=== PATIENT | male | born 1945 | race Caucasian/White ===

== ENCOUNTER 2017-11-08 09:46 | Outpatient (RCR) | payer MEDICARE, OTHER ==
[~2017-11-08 09:46] MED LIST: ASPI325T32 PO; ATEN100T88 PO; ATEN25TA PO; ATOR80TA76 PO; LOVA10TA PO; LOVA20TA2 PO; ONDA4TAB11 PO
[2017-11-09] MEDS ORDERED: METO-333 PO (08:26)
[2017-11-09] MEDS ORDERED: amiodarone PO (08:26)
[2017-11-09] MEDS ORDERED: AMLO5TAB2 PO (08:27)
== END 2018-02-06 | disposition home or self-care (01) ==
LOC: CARD 09:46
PROVIDERS: ATTEND Internal Medicine
DX: R55 Syncope and collapse (principal)
CPT/HCPCS: 93225; 93226

== ENCOUNTER 2017-11-09 07:43 | Emergency (ER) | payer MEDICARE, OTHER ==
[~2017-11-09] VITALS: Ht 166.4 cm; Wt 82.1 kg
--- OUTSIDE RECORDS SUMMARY | 2017-11-09 07:49 | XMS REPORT | Continuity of Care Document ---
Author Author [facility] Organization [facility] Address Unknown Phone Unavailable Allergies Active Description Code Type Severity Reaction Onset Reported/Identified Relationship to Patient Clinical Status Yes No Known Drug Allergies [id number] Drug Allergy Unknown N/A 04/11/2013 Medications There is no data. Problems Date Dx Coded Attending Type Code Diagnosis Diagnosed By 04/11/2013 SUMIT GIBSON DO Ot 562.10 DIVERTICULOSIS COLON (W/O MENT OF HEMORR 04/11/2013 SUMIT GIBSON DO Ot V76.51 SCREEN MAL NEOP-COLON 10/29/2013 TIGRE GEORGE MD Ot 787.01 NAUSEA WITH VOMITING 10/29/2013 TIGRE GEORGE MD Ot 787.91 DIARRHEA 11/30/2014 WALKER KEANE MD Ot 780.2 SYNCOPE AND COLLAPSE 11/30/2014 WALKER KEANE MD Ot 780.4 DIZZINESS AND GIDDINESS 11/30/2014 Ot 433.10 11/30/2014 Ot 433.30 11/30/2014 Ot 785.2 11/30/2014 SUMIT GIBSON DO Ot V72.84 04/09/2015 GRACE LANGE DO Ot 424.1 04/29/2015 GRACE LANGE DO Ot 424.1 05/31/2015 Ot 433.10 05/31/2015 Ot 433.30 05/31/2015 Ot 785.2 05/31/2015 SUMIT GIBSON DO Ot V72.84 05/31/2015 GRACE LANGE DO Ot 424.1 06/03/2015 SAVANNAH ADEN MD Ot Z95.1 06/03/2015 SAVANNAH ADEN MD Ot Z95.1 06/05/2015 SAVANNAH ADEN MD Ot Z95.1 07/08/2015 SAVANNAH ADEN MD Ot Z95.1 07/17/2015 SAVANNAH ADEN MD Ot Z95.1 08/29/2015 SAVANNAH ADEN MD Ot Z95.1 PRESENCE OF AORTOCORONARY BYPASS GRAFT 08/30/2015 MARKIE SORIANO, SAVANNAH Ray Ot Z95.1 08/30/2015 MARKIE SORIANO, SAVANNAH Ray Ot Z95.1 08/30/2015 MARKIE SORIANO, SAVANNAH Ray Ot Z95.1 09/02/2015 MARKIE SORIANO, SAVANNAH Ray Ot Z48.812 ENCNTR FOR SURGICAL AFTCR FOLLOWING SURG 09/02/2015 MARKIE SORIANO, SAVANNAH Ray Ot Z95.1 PRESENCE OF AORTOCORONARY BYPASS GRAFT 01/29/2016 DEMETRA SORIANO, JOSE J Singh Ot I51.7 CARDIOMEGALY 01/29/2016 DEMETRA SORIANO, JOSE J Singh Ot R00.2 PALPITATIONS 01/29/2016 DEMETRA SORIANO, JOSE J T Ot R42 DIZZINESS AND GIDDINESS 01/30/2016 DEMETRA SORIANO, JOSE J T Ot I51.7 CARDIOMEGALY 01/30/2016 DEMETRA SORIANO, JOSE J T Ot R00.2 PALPITATIONS 01/30/2016 DEMETRA SORIANO, JOSE J T Ot R42 DIZZINESS AND GIDDINESS 02/11/2016 Ot 433.10 CAROTID ARTERY OCCLUSION W O CEREBRAL IN 02/11/2016 Ot 433.30 MULT BILTRAL ARTERY OCCLUSION WO CEREBRA 02/11/2016 Ot 785.2 CARDIAC MURMURS NEC 02/11/2016 SUMIT GIBSON DO Ot V72.84 EXAM PRE-OPERATIVE NOS 02/11/2016 GRACE LANGE DO Ot 424.1 AORTIC VALVE DISORDER 02/13/2016 GRACE LANGE DO Ot R00.2 PALPITATIONS 03/31/2016 GRACE LANGE DO Ot R00.2 PALPITATIONS 04/03/2016 GRACE LANGE DO Ot R00.2 PALPITATIONS 05/11/2016 GRACE LANGE DO Ot R00.2 PALPITATIONS 05/12/2016 GRACE LANGE DO Ot R00.2 PALPITATIONS Procedures There is no data. Results There is no data. Encounters ACCT No. Visit Date/Time Discharge Status Pt. Type Provider Facility Loc./Unit Complaint [id number] 05/12/2016 09:30:00 05/12/2016 23:59:59 CLS Preadmit GRACE LANGE DO [facility] HEART PALPITATIONS [id number] 03/06/2016 10:00:00 05/11/2016 00:01:00 DIS Outpatient GRACE LANGE DO [facility] CARD HEART PALPITATIONS [id number] 01/29/2016 21:04:00 01/29/2016 23:09:00 DIS Emergency DEMETRA SORIANO, JOSE J Singh [facility] ER [id number] 09/02/2015 11:52:00 09/02/2015 12:47:00 DIS Outpatient SAVANNAH ADEN MD [facility] CR [id number] 08/26/2015 09:30:00 08/26/2015 23:59:59 CLS Outpatient SAVANNAH ADEN MD [facility] CR [id number] 03/20/2015 11:10:00 03/20/2015 23:59:59 CLS Outpatient GRACE LANGE DO [facility] CARD [id number] 11/30/2014 14:14:00 11/30/2014 15:46:00 DIS Emergency LAKHWINDER SORIANO, WALKER San [facility] ER [id number] 10/29/2013 07:38:00 10/29/2013 10:47:00 DIS Emergency TIGRE GEORGE MD [facility] ER [id number] 04/11/2013 12:33:00 04/11/2013 15:05:00 DIS Outpatient SUMIT GIBSON DO [facility] [id number] 04/05/2013 07:17:00 04/05/2013 23:59:59 CLS Outpatient SUMIT GIBSON DO [facility] PREOP [id number] 11/30/2014 15:50:00 Document Registration [email or web address] 03/20/2015 11:10:20 ACT Document Registration
[2017-11-09 08:00] VITALS: BP 164/99
[2017-11-09] MEDS ORDERED: amiodarone PO (08:26)
[2017-11-09] MEDS ORDERED: METO-333 PO (08:26)
[2017-11-09] MEDS ORDERED: AMLO5TAB2 PO (08:27)
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
[2017-11-09 08:37] LABS: BASOPHILS # (AUTO) 0.1 10^3/uL (0.0-0.1); BASOPHILS % (AUTO) 1 % (0-10); EOSINOPHILS # (AUTO) 0.2 10^3/uL (0.0-0.3); EOSINOPHILS % (AUTO) 3 % (0-10); HEMATOCRIT 39 % (40-54); LYMPHOCYTES # (AUTO) 1.4 X 10^3 (1.0-4.0); LYMPHOCYTES % (AUTO) 20 % (12-44); MEAN CORPUSCULAR HEMOGLOBIN 29 PG (25-34); MEAN CORPUSCULAR HGB CONC 33 G/DL (32-36); MEAN CORPUSCULAR VOLUME 88 FL (80-99); MEAN PLATELET VOLUME 12.1 FL (7.4-10.4); MONOCYTES # (AUTO) 0.5 X 10^3 (0.0-1.0); MONOCYTES % (AUTO) 8 % (0-12); NEUTROPHILS # (AUTO) 4.7 X 10^3 (1.8-7.8); NEUTROPHILS % (AUTO) 68 % (42-75); PLATELET COUNT 224 10^3/uL (130-400); RED CELL DISTRIBUTION WIDTH 14.9 % (10.0-14.5)
[2017-11-09 08:51] LABS: PROTHROMBIN TIME PATIENT 13.4 SEC (12.2-14.7)
[2017-11-09 08:54] LABS: FIBRIN DEGRADATION PRODUCTS 0.65 UG/ML (0.00-0.49)
[2017-11-09 09:01] LABS: ALANINE AMINOTRANSFERASE 28 U/L (0-55); ALBUMIN 4.3 GM/DL (3.2-4.5); ALKALINE PHOSPHATASE 91 U/L (40-136); BILIRUBIN,TOTAL 0.6 MG/DL (0.1-1.0); BUN/CREATININE RATIO 19; CALCIUM 9.6 MG/DL (8.5-10.1); CARBON DIOXIDE 22 MMOL/L (21-32); CHLORIDE 107 MMOL/L (98-107); CREATININE SERUM 1.35 MG/DL (0.60-1.30); GFR ESTIMATED 52; GLUCOSE 99 MG/DL (70-105); POTASSIUM 4.2 MMOL/L (3.6-5.0); SODIUM 140 MMOL/L (135-145); TOTAL PROTEIN 7.4 GM/DL (6.4-8.2)
--- NOTE | 2017-11-09 09:17 | Diagnostic Imaging Report ---
INDICATION: Syncopal episodes Technique: Multiple contiguous axial images were obtained through the brain without the use of intravenous contrast. Comparison made with prior examination from 03/28/2007. FINDINGS: There is prominence of the ventricles and sulci. There is no hydrocephalus or cerebral edema. There is no midline shift or mass-effect. There is no intracranial mass, hemorrhage, or extra-axial fluid collection. There is some diffuse decreased attenuation of the periventricular white matter which is nonspecific. The visualized paranasal sinuses and mastoid air cells are clear. There are no regional areas of decreased attenuation appreciated to suggest an acute CVA. IMPRESSION: 1. No acute intracranial process. 2. Age-appropriate atrophy. 3. Decreased attenuation of the periventricular white matter which is nonspecific, however, likely reflects senescent change and/or chronic small vessel ischemic disease. If there is high clinical concern for an acute CVA further evaluation with MRI should be considered. Dictated by: Dictated on workstation # [id number]
--- NOTE | 2017-11-09 09:30 | Diagnostic Imaging Report ---
INDICATION: Low back pain with leg tingling and weakness. Comparison made with prior examination from 01/29/2016. FINDINGS: The heart size is normal. There has been previous median sternotomy and coronary bypass graft. There is no pleural effusion, pneumothorax or pneumonia. Mediastinum is unremarkable. IMPRESSION: No acute cardiopulmonary abnormality. Dictated by: Dictated on workstation # [id number]
[2017-11-09 09:31] LABS: BILIRUBIN,URINE NEGATIVE (NEGATIVE); CLARITY,URINE CLEAR; COLOR,URINE YELLOW; GLUCOSE, URINE (UA) NEGATIVE (NEGATIVE); KETONES,URINE NEGATIVE (NEGATIVE); LEUKOCYTE ESTERASE ,URINE 1+ (NEGATIVE); NITRITE,URINE NEGATIVE (NEGATIVE); PH,URINE 5 (5-9); PROTEIN,URINE NEGATIVE (NEGATIVE); UROBILINOGEN,URINE NORMAL (NORMAL)
[2017-11-09 09:40] LABS: BACTERIA,URINE NEGATIVE /HPF; SQUAMOUS EPITHELIAL CELL,UR RARE /HPF; WBC,URINE RARE /HPF
[2017-11-09 09:41] LABS: HYALINE CASTS, URINE RARE /LPF
--- NOTE | 2017-11-09 10:03 | Diagnostic Imaging Report ---
PROCEDURE: CT lumbar spine without contrast. TECHNIQUE: Multiple contiguous axial images were obtained through the lumbar spine without the use of intravenous contrast. Sagittal and coronal reformations were then performed. INDICATION: Chronic low back pain. This morning, he woke up and the left leg was tingling and weak. FINDINGS: There is some degenerative lumbar rotoscoliosis. The vertebral body heights are well-maintained. There is no spondylolysis or spondylolisthesis. No fractures are identified. T12-L1 is unremarkable. At L1-2, there is marked loss of disc height and signal intensity. There is broad-based annular bulging, facet disease, and thickening of the ligamentum flavum. There appears to be at least moderate central spinal stenosis with moderately severe bilateral neuroforaminal encroachment, left greater than right. There are degenerative changes in the endplates. There is also a vacuum disc. At L2-3, there is almost complete loss of disc height and signal intensity. There is broad-based annular bulging, facet disease, and thickening of the ligamentum flavum. There are degenerative changes in the endplates. There is moderately severe left neuroforaminal encroachment and mild right neuroforaminal encroachment. At L3-4, there is loss of disc height and signal intensity. There is a vacuum disc. There is broad-based annular bulging, facet disease, and thickening of the ligamentum flavum. There is moderate to severe central spinal stenosis with encroachment upon the lateral recess bilaterally. There is moderately severe right and moderate left neuroforaminal encroachment. At L4-5, there is loss of disc height. There is a vacuum disc. There are degenerative changes in the endplates. There is broad-based annular bulging, facet disease, and thickening of the ligamentum flavum. There is encroachment upon the lateral recess bilaterally. There is moderately severe central spinal stenosis. There is moderately severe right and mild left neuroforaminal encroachment. At L5-S1, there is loss of disc height. There is a vacuum disc. There are degenerative changes in the endplates. There is annular bulging and some facet disease. There is moderate spinal stenosis with encroachment upon the lateral recess bilaterally. There is at least moderate bilateral neuroforaminal encroachment. There is some atherosclerotic calcification of the aorta which is nonaneurysmal. There are no other focal soft tissue abnormalities. IMPRESSION: Severe diffuse lumbar spondylosis and multilevel degenerative disease as detailed above. Dictated by: Dictated on workstation # [id number]
[2017-11-09 11:52] VITALS: BP 150/92
== END 2017-11-09 11:52 | disposition home or self-care (01) ==
LOC: EDUNIT# 07:43 → ER 07:44
DX: M51.16 Intervertebral disc disorders with radiculopathy, lumbar region (principal); I48.91 Unspecified atrial fibrillation; Z79.82 Long term (current) use of aspirin; Z87.828 Personal history of other (healed) physical injury and trauma; Z87.891 Personal history of nicotine dependence
CPT/HCPCS: 36415; 70450; 71045; 72131; 80053; 81000; 84484; 85025; 85379; 85610; 85730; 93005; 93041

== ENCOUNTER → 2018-07-27 | Outpatient (CLI) | payer MEDICARE, OTHER ==
[~2018-07-27] MED LIST changes: +AMLO5TAB7 PO; +METO-333 PO; +amiodarone PO
--- NOTE | 2018-07-27 10:03 | Diagnostic Imaging Report ---
PROCEDURE: MRI lumbar spine. TECHNIQUE: Multiplanar, multisequence MRI of the lumbar spine was performed without contrast. INDICATION: Chronic low back pain and left leg numbness. COMPARISON: No prior studies are available for comparison. FINDINGS: There is right convexity scoliotic curvature. There is fairly normal lumbar lordotic curvature. Overall alignment appears normal apart from minimal retrolisthesis of L2 on L3 and L5 on S1. Vertebral body heights are maintained. No definite acute compression fracture is identified. There is significant degenerative disc disease at all levels of the lumbar spine with near-complete loss of the disc spaces as well as desiccation and marginal osteophyte formation. Conus is unremarkable at the L1 level. T12-L1: Central canal is widely patent. Neural foramina are widely patent. L1-2: Broad-based disc/osteophyte complex is present. There is mild narrowing of the canal. There is significant narrowing of the lateral recesses bilaterally as well as significant bilateral neural foraminal stenosis. L2-3: There is ligamentous thickening and facet changes as well as broad-based disc/osteophyte complex. Central canal is patent but there is bilateral lateral recess narrowing. There is also moderate bilateral neural foraminal stenosis. L3-4: Broad-based disc/osteophyte complex and ligamentous thickening produces moderate trefoil stenosis to the central canal. There is also significant bilateral lateral recess stenosis and significant bilateral neural foraminal stenosis. L4-5: Ligamentous thickening and facet changes with broad-based disc/osteophyte complex results in moderate trefoil stenosis to the canal. There is significant bilateral lateral recess stenosis with severe right neural foraminal stenosis and moderate left neural foraminal stenosis. L5-S1: Broad-based disc/osteophyte complex results in mild central canal narrowing. There is significant narrowing of the lateral recesses bilaterally. There is also severe right and moderate left neural foraminal stenosis. Paraspinous tissues are unremarkable. IMPRESSION: Significant multilevel lumbar spondylosis with multilevel central canal, lateral recess and neural foraminal stenosis described level by level above. No acute compression fracture is detected. Dictated by: Dictated on workstation # [id number]
== END ==
LOC: RAD 08:27
PROVIDERS: ATTEND Internal Medicine
DX: M48.07 Spinal stenosis, lumbosacral region (principal); M25.78 Osteophyte, vertebrae; M47.816 Spondylosis without myelopathy or radiculopathy, lumbar region; M41.86 Other forms of scoliosis, lumbar region; M43.17 Spondylolisthesis, lumbosacral region; M51.36 Other intervertebral disc degeneration, lumbar region
CPT/HCPCS: 72148

== ENCOUNTER → 2018-10-17 | Outpatient (CLI) | payer MEDICARE, OTHER ==
[~2018-10-17] MED LIST changes: -AMLO5TAB7 PO; +AMLO5TAB9 PO
--- NOTE | 2018-10-17 19:01 | Diagnostic Imaging Report ---
PROCEDURE: US DOPPLER ABD/COMPLETE. TECHNIQUE: Multiple Real-time grayscale images were obtained over the kidneys in various projections. Duplex evaluation of renal arteries was also attempted. INDICATION: Chronic kidney disease. FINDINGS: The right kidney measures 9.7 x 4.8 x 4.8 cm and the left measures 9.0 x 6.1 x 3.7 cm. There is some mild cortical thinning. No calculus or hydronephrosis is seen. The proximal right renal artery was obscured by bowel gas. The mid and distal renal arteries show normal velocities. The left renal artery demonstrates normal velocities. The renal artery to aorta ratios are normal. The waveforms are unremarkable. IMPRESSION: Mild cortical thinning. The study is otherwise unremarkable. No definite sonographic evidence of renal artery stenosis is identified. Dictated by: Dictated on workstation # [id number]
== END ==
LOC: RAD 08:37
PROVIDERS: ATTEND Internal Medicine
DX: N18.9 Chronic kidney disease, unspecified (principal)
CPT/HCPCS: 93975

== ENCOUNTER → 2019-05-03 | Outpatient (CLI) | payer MEDICARE, OTHER ==
--- NOTE | 2019-05-03 12:50 | Diagnostic Imaging Report ---
PROCEDURE: US Venous Lower Ext Peter. TECHNIQUE: Multiple real-time grayscale images were obtained over the lower extremities in various projections, bilaterally. Additional duplex Doppler and color Doppler images were also obtained. INDICATION: Localized edema in bilateral lower extremities. FINDINGS: There is no evidence of right or left lower extremity DVT. Both lower extremity deep venous systems show normal compressibility with normal response to augmentation and Valsalva. No fluid collection or mass is seen. IMPRESSION: No evidence of right or left lower extremity DVT. Dictated by: Dictated on workstation # [id number]
== END ==
LOC: RAD 08:56
PROVIDERS: ATTEND Internal Medicine
DX: R60.0 Localized edema (principal)
CPT/HCPCS: 93970

== ENCOUNTER 2019-10-18 05:57 | Outpatient (CLI) | payer MEDICARE, OTHER ==
[~2019-10-18] VITALS: Ht 170.2 cm; Wt 90.0 kg
[2019-10-18] MEDS ORDERED: FURO20TA4 PO (10:57)
[2019-10-18] MEDS ORDERED: APIX5TAB PO (10:57)
[2019-10-18] MEDS ORDERED: UBID100C17 PO (10:57)
[2019-10-20] MEDS ORDERED: FERR-84 PO (11:38)
== END 2019-10-18 11:12 | disposition home or self-care (01) ==
LOC: PREOP 05:57
PROVIDERS: ATTEND Internal Medicine
DX: Z01.818 Encounter for other preprocedural examination (principal)

== ENCOUNTER 2019-10-20 08:59 | Day surgery (SDC) | payer MEDICARE, OTHER ==
[~2019-10-20] VITALS: Ht 170.2 cm; Wt 90.0 kg
[2019-10-20] VITALS (14 sets, daily range): BP systolic 104–136; BP diastolic 55–69
[~2019-10-20 08:59] MED LIST changes: +APIX5TAB PO; +D5 LR IV SOLUTION 1,000 ML IV ONE; +FURO20TA4 PO; +UBID100C17 PO
[2019-10-20] MEDS ORDERED: D5 LR IV SOLUTION 1,000 ML IV STA (09:05)
[2019-10-20] MEDS ORDERED: LIDOCAINE JELLY 2% 6 ML SYRINGE MM PRN (09:15)
[2019-10-20] MEDS ORDERED: fentaNYL INJECTION 100 MCG/2 ML AMP IVP ONE (09:15)
[2019-10-20] MEDS ORDERED: LIDOCAINE JELLY 2% 6 ML SYRINGE ONE (09:58)
[2019-10-20] MEDS ORDERED: MIDAZOLAM 5 MG/5 ML (VERSED) VIAL ONE (09:58)
[2019-10-20] MEDS ORDERED: fentaNYL INJECTION 100 MCG/2 ML AMP ONE (09:58)
[2019-10-20] MEDS: MIDAZOLAM 5 MG/5 ML (VERSED) VIAL IV PRN ×3 (10:10→10:38)
[2019-10-20] MEDS: HURRICAINE EXT TUBE (BENZOCAINE) XX PRN ×2 (10:35→10:38)
[2019-10-20] MEDS ORDERED: FERR-84 PO ×2 (11:38)
--- NOTE | 2019-10-20 11:39 | Pre-Op Note & Conscious Sedat ---
Pre-Operative Progress Note H&P Reviewed The H&P was reviewed, patient examined and no changes noted. Date H&P Reviewed: Oct 20, 2019 Time H&P Reviewed: 10:00 Conscious Sedation Pre-Proced ASA Score 2 For ASA 3 and 4: Consider anesthesia and medical clearance. Also, for patients with a history of failed moderate sedation consider anesthesia. Airway Lungs Heart ASA score ASA 1: a normal healthy patient ASA 2: a patient with a mild systemic disease (mid diabetes, controlled hypertension, obesity ASA 3: a patient with a severe systemic disease that limits activity (angina, COPD, prior Myocardial infarction) ASA 4: a patient with an incapacitating disease that is a constant threat to life (CHF, renal failure) ASA 5: a moribund patient not expected to survive 24 hrs. (ruptured aneurysm) ASA 6: a declared brain- patient whose organs are being harvested. For emergent operations, add the letter E after the classification Mallampati Classification Grade 2 Sedation Plan Analgesia, Amnesia, Plan communicated to team members, Discussed options with patient/fam, Discussed risks with patient/fam The patient is an appropriate candidate to undergo the planned procedure, sedation, and anesthesia. The patient immediately re-assessed prior to indication. JAIRON ALTMAN MD Oct 20, 2019 11:39
[2019-10-20 12:38] LABS: ABSOLUTE RETIC # 52 10e9/L (24-90); BASOPHILS # (AUTO) 0.1 10^3/uL (0.0-0.1); BASOPHILS % (AUTO) 2 % (0-10); EOSINOPHILS # (AUTO) 0.1 10^3/uL (0.0-0.3); EOSINOPHILS % (AUTO) 2 % (0-10); LYMPHOCYTES # (AUTO) 1.2 X 10^3 (1.0-4.0); LYMPHOCYTES % (AUTO) 23 % (12-44); MEAN CORPUSCULAR HEMOGLOBIN 20 PG (25-34); MEAN CORPUSCULAR HGB CONC 28 G/DL (32-36); MEAN CORPUSCULAR VOLUME 72 FL (80-99); MEAN PLATELET VOLUME 10.2 FL (7.4-10.4); MONOCYTES # (AUTO) 0.6 X 10^3 (0.0-1.0); MONOCYTES % (AUTO) 11 % (0-12); NEUTROPHILS # (AUTO) 3.2 X 10^3 (1.8-7.8); NEUTROPHILS % (AUTO) 63 % (42-75); PLATELET COUNT 248 10^3/uL (130-400); RED CELL DISTRIBUTION WIDTH 20.5 % (10.0-14.5); WHITE BLOOD COUNT 5.1 10^3/uL (4.3-11.0)
[2019-10-20 12:44] LABS: HEMOGLOBIN 4.9 G/DL (13.3-17.7)
[2019-10-20 12:45] LABS: HEMATOCRIT 18 % (40-54)
[2019-10-20 13:55] LABS: ANISOCYTOSIS SLIGHT; BAND NEUTROPHILS 0 %; BASOPHILS % (MANUAL) 2 %; ELLIPT/OVALOCYTES SLIGHT; EOSINOPHILS % (MANUAL) 4 %; LYMPHOCYTES % (MANUAL) 21 %; MICROCYTOSIS SLIGHT; MONOCYTES % (MANUAL) 6 %; NEUTROPHILS % (MANUAL) 67 %; POIKILOCYTOSIS SLIGHT
--- NOTE | 2019-10-20 17:09 | OPERATIVE REPORT ---
DATE OF SERVICE: PANENDOSCOPY SUMMARY INDICATION FOR THE PROCEDURE: Severe microcytic anemia in a patient who is on Eliquis anticoagulation for paroxysmal atrial fibrillation. DESCRIPTION OF PROCEDURE: The patient was placed in the left lateral decubitus position. Prior to undergoing colonoscopy, digital rectal evaluation was performed. Anal sphincter tone was normal and the perianal reflex was intact. Prostate was unremarkable to digital inspection with no nodularity or tenderness being appreciated. No abnormalities on additional inspection of anal canal or distal rectal vault. The colonoscope was then inserted into the rectum and under direct visualization advanced to cecum. The cecum was identified by identification of the ileocecal valve and cecal strap. Photographic documentation was obtained. Careful inspection was made as colonoscope was withdrawn. Quality of prep was good. FINDINGS: There was no evidence for internal or external hemorrhoids. Present around the rectosigmoid junction were 5 or 6 diminutive 2 to 3 mm hyperplastic-appearing polyps. Photograph was obtained. Considering this patient's severe anemia, and polyp removal bleeding, risk was outweighed by the potential benefits and so they were left. Several small to medium size sigmoid diverticulum were present without evidence for diverticulitis. The descending colon, splenic flexure, transverse colon, hepatic flexure, ascending colon and cecum were unremarkable. ASSESSMENT: No potential bleeding sites were noted on today's colonoscopy. The patient did have five or six hyperplastic appearing polyps around the rectosigmoid junction that were left due to his severe anemia and low risk and risk to benefit ratio strongly favoring leaving them. The patient did have mild diverticular disease confined to the sigmoid colon with no evidence for diverticulitis. The prostate was unremarkable to digital inspection. We then proceeded with EGD evaluation. Lastly, there was no evidence for blood in the colon. The upper endoscope was inserted in the oral cavity and under direct visualization, esophagus was intubated. Endoscope was passed down the esophagus through the stomach and second portion of the duodenum. Careful inspection was made as the endoscope was withdrawn. The patient tolerated the procedure well. FINDINGS: The proximal, mid and distal esophagus were unremarkable. There was no evidence for rings, webs, strictures, Rice's change or erosive esophagitis. No evidence for varices were noted. The cardia, fundus, antrum, pylorus, pyloric channels, duodenal bulb and second portion of the duodenum were unremarkable. ASSESSMENT: Normal EGD, no evidence for potential bleeding sites and no evidence for blood in the upper gastrointestinal tract. I did obtain an anemia analyzer panel and considering microcytosis and making the assumption of iron deficiency anemia. We will initiate ferrous sulfate every other day as this appears to be just as effective with fewer side effects at 325 mg. He was advised to follow up with Dr. Akers in 1 to 2 weeks for a repeat CBC. Discussed that if he was feeling weak or if there is any significant lightheadedness, presyncope or syncope, he would need emergency room evaluation. Discussed every other day, iron may turn stools slightly darker, but he should not have tarry black stools. In addition, the patient had normal villous architecture with no evidence to suggest villous atrophy/sprue. We discussed if there is evidence for ongoing gastrointestinal bleeding, capsule endoscopy would be the next step in his workup. Thank you for the referral of this pleasant gentleman. Job ID: [id number] DocumentID: [id number] Dictated Date: 10/20/2019 12:22:41 Retirement Plan Counselor Date: 10/20/2019 17:08:34 Dictated By: JAIRON ALTMAN MD MTDD
--- NOTE | 2019-10-23 01:18 | HISTORY AND PHYSICAL ---
DATE OF SERVICE: PANENDOSCOPY HISTORY AND PHYSICAL DATE OF ADMISSION: 11/20/2019. HISTORY OF PRESENT ILLNESS: The patient is a 74-year-old white male referred by Dr. Akers for consideration for panendoscopy for evaluation of microcytic anemia. The patient reports that he has noted some fatigue, but otherwise has felt well and denied any problems with indigestion, dysphagia, abdominal pain, change in bowel habits, melena or bright red blood per rectum. Risk factors for bleeding include the need for Eliquis 5 mg b.i.d. and I believe he may be taking a baby aspirin as well due to the history of coronary artery disease and paroxysmal atrial fibrillation. PAST MEDICAL HISTORY: Significant for hypertension and for valvular heart disease/aortic stenosis. He underwent transaortic valvular replacement. He also has a history of hyperlipidemia and diverticulosis. He believes his last colonoscopy was 7 or 8 years ago. He does not recall that it showed any abnormalities. He does not recall that he was told he had diverticulosis, but it is reported on his past medical history as a diagnosis from Dr. Akers's office. The patient also reports no problems with diarrhea. PAST SURGICAL HISTORY: Significant for coronary artery bypass grafting over 5 years and transaortic valvular replacement several years ago. After one of these procedures, he was noted to have atrial fibrillation, was on amiodarone for a over a year. This was stopped secondary to some pulmonary complaints and has not been aware of any recurrence since. MEDICATIONS ON ADMISSION: Include Eliquis 5 mg b.i.d., furosemide 20 mg daily, atorvastatin 80 mg daily, metoprolol 25 mg b.i.d. and CoQ10 100 mg daily and questionable baby aspirin. FAMILY HISTORY: He is not aware of any family history for GI tract malignancy. Mother at age of 68 and father at age of 67 related to vascular disease. PHYSICAL EXAMINATION: GENERAL: Reveals a white male, slightly pale, otherwise in no acute distress. VITAL SIGNS: Blood pressure 120/64 and weight 198.2 reportedly stable. HEENT: Other than pallor, was unremarkable. Sclerae nonicteric. CHEST: Clear to auscultation. CARDIOVASCULAR: Reveals a regular rate and rhythm with a soft 1 to 2/6 systolic ejection murmur heard best over the aortic outflow tract without S3, S4 or evidence for diastolic murmurs being noted. ABDOMEN: Soft, supple without mass, organomegaly or tenderness. EXTREMITIES: Reveal no cyanosis, clubbing or edema. ASSESSMENT AND PLAN: 1. Anemia, microcytic, likely iron deficiency with risk factors for GI tract bleeding as noted above. The patient is set up for panendoscopy on 11/20/2019. Prep instructions with a Suprep kit were given and questions were answered. He will hold Eliquis 48 hours prior to the procedure. Blood tests were reviewed. His hemoglobin was 6.3%, but he is tolerating moderate to severe anemia well. Mean corpuscular hemoglobin was ____ and white count and platelet counts were normal at 8.8 and 315,000 respectively. 2. He does have a history of stage III chronic renal disease. His creatinine was 2. The remainder of his electrolytes were unremarkable as were liver function studies. Job ID: [id number] DocumentID: [id number] Dictated Date: 10/17/2019 11:12:58 Traffic Control Signaler Date: 10/17/2019 11:50:12 Dictated By: JAIRON ALTMAN MD
== END 2019-10-20 12:30 | disposition home or self-care (01) ==
LOC: ENDO 08:59
PROVIDERS: ATTEND Internal Medicine
DX: D50.9 Iron deficiency anemia, unspecified (principal); K62.1 Rectal polyp; K62.5 Hemorrhage of anus and rectum; I48.0 Paroxysmal atrial fibrillation; I13.10 Hypertensive heart and chronic kidney disease without heart failure, with stage 1 through stage 4 chronic kidney disease, or unspecified chronic kidney disease; N18.3 Chronic kidney disease, stage 3 (moderate); K57.30 Diverticulosis of large intestine without perforation or abscess without bleeding; E78.5 Hyperlipidemia, unspecified; Z79.01 Long term (current) use of anticoagulants; Z79.82 Long term (current) use of aspirin; Z79.899 Other long term (current) drug therapy; Z95.1 Presence of aortocoronary bypass graft; Z95.2 Presence of prosthetic heart valve
CPT/HCPCS: 36415; 85007; 85045

== ENCOUNTER 2019-10-23 10:37 | Outpatient (CLI) | payer MEDICARE, OTHER ==
[~2019-10-23] VITALS: Ht 172.7 cm; Wt 90.0 kg
[2019-10-23] VITALS (7 sets, daily range): BP systolic 115–147; BP diastolic 67–78
[~2019-10-23 10:37] MED LIST changes: -D5 LR IV SOLUTION 1,000 ML IV ONE; +FERR-84 PO
[2019-10-23] MEDS ORDERED: NS IV 500 ML 500 ML ONE (11:56)
[2019-10-23] MEDS ORDERED: NS IV 500 ML 500 ML IV SCH (12:00)
[2019-10-23 14:29] LABS: HEMOGLOBIN 6.4 G/DL (13.3-17.7)
[2019-10-23 16:52] LABS: HEMOGLOBIN 7.3 G/DL (13.3-17.7)
--- NOTE | 2019-10-23 16:55 | NUR ---
ATTEMPTED TO CALL DR. LANGE'S OFFICE AND CELL PHONE X2 TO REPORT HEMOGLOBIN LEVEL INCREASE TO 7.3 FROM 4.9 POST 2 UNITS RBCS, NO ANSWER. FAXED RESULTS TO DR. LANGE'S OFFICE. PROVIDED POST BLOOD INSTRUCTIONS TO PATIENT.
== END 2019-10-23 17:00 | disposition home or self-care (01) ==
LOC: SDC 10:37
PROVIDERS: ATTEND Internal Medicine
DX: D50.9 Iron deficiency anemia, unspecified (principal)
CPT/HCPCS: 36415; 36430; 85014; 85018; 86850; 86900; 86901; 86920

== ENCOUNTER 2020-08-01 10:52 | Outpatient (CLI) | payer MEDICARE, OTHER ==
[2020-08-01] VITALS (7 sets, daily range): BP systolic 107–128; BP diastolic 50–67
[~2020-08-01] VITALS: Ht 170 cm; Wt 87.0 kg
[~2020-08-01 10:52] MED LIST changes: +AMLO-250 PO; -AMLO5TAB9 PO
[2020-08-01] MEDS ORDERED: NS IV 500 ML 500 ML IV NR (11:15)
[2020-08-01 15:58] LABS: MEAN PLATELET VOLUME 10.7 fL (9.0-12.2); WHITE BLOOD COUNT 5.3 10^3/uL (4.3-11.0)
[2020-08-01 16:02] LABS: HEMOGLOBIN 6.6 g/dL (13.3-17.7)
--- NOTE | 2020-08-01 16:15 | NUR ---
1553 blood transfusion completed, collected cbc. Hgb results were 6.6, attempted to call Dr. Akers's office and cellphone with no answer. This RN faxed lab results to the office. Monitored patient until approx 1615, no s/s of reaction. This RN educated patient on s/s of reactions and instructed him if he experienced any s/s to report to the ER, patient verbalized understanding. IV dc'd and patient left sdc via ambulatory, unaccompanied.
== END 2020-08-01 16:20 | disposition home or self-care (01) ==
LOC: SDC 10:52
PROVIDERS: ATTEND Internal Medicine
DX: D50.9 Iron deficiency anemia, unspecified (principal)
CPT/HCPCS: 36430; 85027; 86850; 86900; 86901; 86920; P9016; 36415

== ENCOUNTER 2020-08-08 10:22 | Outpatient (CLI) | payer MEDICARE, OTHER ==
[~2020-08-08] VITALS: Ht 170 cm; Wt 87.0 kg
[2020-08-08] VITALS (7 sets, daily range): BP systolic 117–139; BP diastolic 56–71
[2020-08-08] MEDS ORDERED: NS IV 500 ML 500 ML IV ONE (11:00)
[2020-08-08 16:40] LABS: HEMOGLOBIN 8.9 g/dL (13.3-17.7)
== END 2020-08-08 16:51 | disposition home or self-care (01) ==
LOC: SDC 10:22
PROVIDERS: ATTEND Internal Medicine
DX: D50.9 Iron deficiency anemia, unspecified (principal)
CPT/HCPCS: 36430; 85014; 85018; 86850; 86900; 86901; 86920; P9016; 36415

== ENCOUNTER → 2020-10-18 | Outpatient (CLI) | payer MEDICARE, OTHER ==
[~2020-10-18] MED LIST changes: +NS IV 500 ML 500 ML IV SCH
[2020-10-18 12:30] VITALS: BP 93/52
[2020-10-18 12:45] VITALS: BP 123/60
[2020-10-18 14:51] LABS: HEMOGLOBIN 6.6 g/dL (13.3-17.7)
[2020-10-18 15:00] VITALS: BP 132/62
[2020-10-18 15:26] VITALS: BP 130/73
[2020-10-18 18:00] VITALS: BP 132/62
== END ==
LOC: SDC 11:14
PROVIDERS: ATTEND Internal Medicine
DX: D50.9 Iron deficiency anemia, unspecified (principal)
CPT/HCPCS: 36430; 85014; 85018; 86850; 86900; 86901; 86920; P9016; 36415

== ENCOUNTER 2020-11-23 10:04 | Emergency (ER) | payer MEDICARE, OTHER ==
[~2020-11-23] VITALS: Ht 170 cm; Wt 85.5 kg
[~2020-11-23 10:04] MED LIST changes: -NS IV 500 ML 500 ML IV SCH
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
[2020-11-23] MEDS ORDERED: ACHD5005 PO (11:18)
[2020-11-23] MEDS ORDERED: CEPH500T PO (11:18)
[2020-11-23 11:22] VITALS: BP 188/106
== END 2020-11-23 11:23 | disposition home or self-care (01) ==
LOC: EDUNIT# 10:04 → ER 10:05
DX: S80.12XA Contusion of left lower leg, initial encounter (principal); L03.116 Cellulitis of left lower limb; N18.9 Chronic kidney disease, unspecified; D63.1 Anemia in chronic kidney disease; I48.91 Unspecified atrial fibrillation; Z87.891 Personal history of nicotine dependence; Z79.02 Long term (current) use of antithrombotics/antiplatelets; Z95.4 Presence of other heart-valve replacement; Z95.1 Presence of aortocoronary bypass graft; W28.XXXA Contact with powered lawn mower, initial encounter; Y93.H2 Activity, gardening and landscaping
CPT/HCPCS: 73590

== ENCOUNTER → 2023-01-06 | Outpatient (RCR) | payer MEDICARE, OTHER ==
[~2023-01-06] MED LIST changes: +ACHD5005 PO; +CEPH500T PO
== END | disposition home health service (06) ==
LOC: ONC 08:25
PROVIDERS: ATTEND Radiology Radiation Oncology
DX: C44.299 Other specified malignant neoplasm of skin of left ear and external auricular canal (principal); I11.9 Hypertensive heart disease without heart failure; E78.00 Pure hypercholesterolemia, unspecified; I12.9 Hypertensive chronic kidney disease with stage 1 through stage 4 chronic kidney disease, or unspecified chronic kidney disease; N18.9 Chronic kidney disease, unspecified
CPT/HCPCS: 99205

== ENCOUNTER 2023-01-27 15:55 | Emergency (ER) | payer MEDICARE ==
[~2023-01-27] VITALS: Ht 170 cm; Wt 77.0 kg
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
[2023-01-27 16:39] VITALS: BP 169/92
== END 2023-01-27 16:40 | disposition home or self-care (01) ==
LOC: EDUNIT# 15:55 → ER 15:56
DX: H61.22 Impacted cerumen, left ear (principal)
CPT/HCPCS: 99282

== ENCOUNTER → 2023-02-05 | Outpatient (RCR) | payer MEDICARE | END | disposition home or self-care (01) | LOC: ONC 01-07 12:59 | PROVIDERS: ATTEND Radiology Radiation Oncology | DX: Z51.0 Encounter for antineoplastic radiation therapy (principal); C44.299 Other specified malignant neoplasm of skin of left ear and external auricular canal; I11.9 Hypertensive heart disease without heart failure; E78.00 Pure hypercholesterolemia, unspecified; I12.9 Hypertensive chronic kidney disease with stage 1 through stage 4 chronic kidney disease, or unspecified chronic kidney disease; N18.9 Chronic kidney disease, unspecified; D63.1 Anemia in chronic kidney disease | CPT/HCPCS: 77280; 77290; 77295; 77300; 77334; 77336 ==

== ENCOUNTER 2023-02-25 07:53 | Outpatient (RCR) | payer MEDICARE | END 2023-03-08 | disposition home or self-care (01) | LOC: ONC 07:53 | PROVIDERS: ATTEND Radiology Radiation Oncology | DX: Z51.0 Encounter for antineoplastic radiation therapy (principal); C44.299 Other specified malignant neoplasm of skin of left ear and external auricular canal; I11.9 Hypertensive heart disease without heart failure; E78.00 Pure hypercholesterolemia, unspecified; I12.9 Hypertensive chronic kidney disease with stage 1 through stage 4 chronic kidney disease, or unspecified chronic kidney disease; N18.9 Chronic kidney disease, unspecified; D63.1 Anemia in chronic kidney disease | CPT/HCPCS: 77412; G0463; 77336 ==

== ENCOUNTER → 2023-04-08 | Outpatient (RCR) | payer MEDICARE | END | disposition home or self-care (01) | LOC: ONC 09:10 | PROVIDERS: ATTEND Radiology Radiation Oncology | DX: C44.299 Other specified malignant neoplasm of skin of left ear and external auricular canal (principal); I11.9 Hypertensive heart disease without heart failure; E78.00 Pure hypercholesterolemia, unspecified; I12.9 Hypertensive chronic kidney disease with stage 1 through stage 4 chronic kidney disease, or unspecified chronic kidney disease; N18.9 Chronic kidney disease, unspecified; D63.1 Anemia in chronic kidney disease | CPT/HCPCS: 99213 ==